=== PATIENT | male | born 1975 | race Caucasian/White ===

== ENCOUNTER 2016-07-14 13:12 | Inpatient (IN) | payer BC, OTHER ==
[~2016-07-14] VITALS: Ht 167.6 cm; Wt 79.8 kg
[2016-07-14 07:10] VITALS: BP 134/86
[2016-07-14] MEDS ORDERED: ONDANSETRON ODT 4 MG TAB.RAPDIS SL PRN (14:00)
[2016-07-14] MEDS ORDERED: ONDANSETRON 4 MG/2 ML VIAL IM PRN (14:00)
[2016-07-14] MEDS ORDERED: MIRALAX 17 GM POWD.PACK PO PRN (14:00)
[2016-07-14] MEDS ORDERED: DICYCLOMINE HCL 20 MG TABLET PO PRN (14:00)
[2016-07-14] MEDS ORDERED: LOPERAMIDE HCL 2 MG CAPSULE PO PRN ×2 (14:00)
[2016-07-14] MEDS ORDERED: MAGNESIUM HYDROXIDE 30 ML LIQUID UDC PO PRN (14:00)
[2016-07-14] MEDS ORDERED: ACETAMINOPHEN 325 MG TABLET PO PRN (14:00)
[2016-07-14] MEDS ORDERED: LORAZEPAM 2 MG/1 ML VIAL IM PRN (14:00)
[2016-07-14] MEDS ORDERED: IBUPROFEN 400 MG TABLET PO PRN (14:00)
[2016-07-14] MEDS ORDERED: LORAZEPAM 1 MG TABLET PO PRN ×2 (14:00)
--- NOTE | 2016-07-14 14:10 | NUR ---
PRE-ASSESSMENT: Pre-Assessment done at intake office, client is A/O to name, place and time, he presents with flat affect, anxious mood, skin warm and moist, he states "I feel very tired, I just want to sleep." T 97.9, RR 18, HR 61, BP 134/86 (L arm, sitting), spO2 @ 98% on RA, Pain 0/10. He is fully ambulatory. He denies any allergies; he denies any withdrawal-induced seizure. PMH: Anxiety, alcohol use. Medications taken at home (He did not bring any home medications) Prescription for alprazolam 0.5 mg four months ago, he reports taking 1 or 2 tabs as prescribed 4-5 times per week. Substance use: Client reports consuming twelve 12-ounce servings of beer (6% ABV/serving) on a daily basis for the past five years, last consumed on 07/11/16 Client was discharged from [facility] in [place], [place] this morning; where he underwent medically supervised withdrawal for alcohol, s/sx of withdrawal treated with Oxazepam taper, with the last dose received this morning, he does not know the dose, he started taking it on 07/11/16. He denies been in a formal detox treatment. He reports his longest period of sobriety being for 3 months in 1995 (can not recall the months). Client made aware of Q4H vital signs check and he verbalized understanding.
--- NOTE | 2016-07-14 14:30 | NUR ---
Admissions Note 40 year old male admitted to [facility] for alcohol withdrawal. Client reports PMH of Anxiety, alcohol use. Client is oriented to unit, educated about protocols and how to work TV and call light in his room. Weight: 176 pounds. Height: 5'6" CIWA: 4 Client appears anxious, flushed face noted, skin intact, warm, moist, small tattoo on BUE and back. Bilateral lung clear on auscultation, abdomen soft, non-tender, no edema noted. Client is hyperverbal and doesn't remember exact dates at this time. Client has NKA. Regular diet ordered. Client denies any history of seizures. LBM was 07/04/16, moderate/brown/soft. Client denies a PCP. He gives verbal consent for PNA vaccine and HIV testing. Substance use: Client reports drinking his first beer at 10 y/o, but increased his drinking around 19 y/o, now he is consuming twelve 12-ounce servings of beer (6% ABV/serving) on a daily basis for the past five years, last consumed on 07/11/16 Client states that he lives with his sister, his and stepdaughter left him. Dr Matson assessed client, Lorazepam 1 mg PO q2h PRN CIWA 8-14, Lorazepam 2 mg PO q2h PRN CIWA 15+ and notify MD. Urine was collected upon admission. All safety measures instituted. Seizure precaution. Call light within reach. Will continue to monitor.
[2016-07-14 14:53] LABS: *AMPHETAMINE, URINE NEGATIVE (NEGATIVE); *BARBITURATE, URINE NEGATIVE (NEGATIVE); *CANNABINOID, URINE NEGATIVE (NEGATIVE); *COCCAINE, URINE NEGATIVE (NEGATIVE); *OPIATE, URINE NEGATIVE (NEGATIVE); *PHENCYCLIDINE SCREEN,URINE NEGATIVE (NEGATIVE)
[2016-07-14] MEDS ORDERED: THIAMINE HCL 200 MG/2 ML VIAL IM ONE (15:00)
[2016-07-14 15:24] LABS: BASOPHILS # (AUTO) 0.1 K/uL (0.0-8.0); BASOPHILS % (AUTO) 0.9 % (0.0-2.0); EOSINOPHILS % (AUTO) 0.7 % (0.0-7.0); HEMATOCRIT 42.3 % (40-50); HEMOGLOBIN 14.1 G/DL (14.0-18.0); LYMPHOCYTES # (AUTO) 1.5 K/UL (0.8-4.8); LYMPHOCYTES % (AUTO) 26.9 % (20.5-51.5); MEAN CORPUSCULAR HEMOGLOBIN 32.4 UUG (27.0-31.0); MEAN CORPUSCULAR HGB CONC 33 g/dL (32.0-37.0); MEAN CORPUSCULAR VOLUME 97.2 FL (82.0-92.0); MONOCYTES # (AUTO) 0.6 K/UL (0.1-1.30); NEUTROPHILS # (AUTO) 3.6 K/UL (1.8-8.9); NEUTROPHILS % (AUTO) 60.5 % (38.5-71.5); PLATELET COUNT (AUTO) 166 K/UL (150-450); RED BLOOD CELL COUNT(AUTO) 4.36 MIL/UL (4.7-6.1); WHITE BLOOD COUNT (AUTO) 5.8 K/UL (4.0-11.2)
[2016-07-14 15:29] LABS: ETHANOL < 3 MG/DL (0-0)
[2016-07-14 15:30] LABS: ALANINE AMINOTRANSFERASE 103 U/L (16-63); ALKALINE PHOSPHATASE 143 U/L (50-136); AMYLASE 167 U/L (25-115); ASPARTATE AMINOTRANSFERASE 129 U/L (15-37); BILIRUBIN,TOTAL 0.7 mg/dL (0.2-1.0); CARBON DIOXIDE 30 mmol/L (21-32); CHLORIDE 101 mmol/L (98-107); CREATININE 0.8 mg/dL (0.6-1.3); GLUCOSE 102 mg/dL (74-106); LIPASE 469 U/L (73-393); MAGNESIUM 2.1 mg/dL (1.8-2.4); POTASSIUM 4.4 mmol/L (3.5-5.1); TOTAL PROTEIN, SERUM 8.5 g/dL (6.4-8.2); UREA NITROGEN, BLOOD 8 mg/dL (7-18)
[2016-07-14 15:54] LABS: THYROID STIMULATING HORMONE 1.908 mIU/mL (0.358-3.740)
[2016-07-14 16:50] VITALS: BP 148/82
--- NOTE | 2016-07-14 19:00 | NUR ---
Start of Shift Patient Received. Patient is in his room, awake, alert and verbally responsive. Patient noted to be watching TV. Patient is a 40 year old male, admitted 07/14/16 for ETOH Dependence under the care of Dr. Matson. Patient was placed on PRN medications for increased signs and symptoms of withdrawal. Patient verbalized No known allergies, full code, following a regular diet, placed on fall and seizure precautions, and skin intact. Past medical history verbalized of anxiety. Per endorsement, patient is to be NPO at Midnight with orders for Ultrasound to be rendered in the morning due to abnormal lab values. Patient is aware and verbalizes understanding. No PRN medications administered. All needs attended to promptly. Will continue plan of care as ordered.
--- NOTE | 2016-07-14 19:08 | NUR ---
END OF SHIFT Client is in room, he appears anxious, withdrawn, he denies any N/V/D or headache. Available Lorazepam 1 mg PO q2h PRN CIWA 8-14, Lorazepam 2 mg PO q2h PRN CIWA 15+ and notify . ABD schedule for tomorrow d/t increased liver enzyme, R/O cbd Dilation. He is a 40 y/o male admitted to [facility] on 07/14/16 for medically-supervised withdrawal from alcohol. NKA, Regular diet, full code. Last CIWA 6 @ 1600. Adequate intake 1200mL and output void x 4, stool x 2. Seizure precautions. Side rails x 2 up/padded. Call light within reach. Endorsed to incoming nurse.
[2016-07-14 20:15] VITALS: BP 145/91
[2016-07-14 21:49] VITALS: BP 134/86
--- NOTE | 2016-07-14 21:55 | NUR ---
PRN Medication Administration Patient noted with a CIWA of 8 and verbalizing increased anxiety. Patient verbalized Keke tried to walk around in hopes to walk it off but my anxiety wont go away. PRN Ativan 1mg administered as per orders. Will continue to monitor.
--- NOTE | 2016-07-14 23:00 | NUR ---
PRN Medication Reassessment Patient noted in bed, awake, alert and verbally responsive. Patient was able to verbalize I was able to calm down once I took the medication. CIWA noted to be 4. Will continue to monitor.
[2016-07-15 00:49] VITALS: BP 136/82
[2016-07-15 04:10] VITALS: BP 139/77
[2016-07-15] MEDS: PANTOPRAZOLE SODIUM 40 MG TABLET.DR PO SCH (06:43)
--- NOTE | 2016-07-15 07:10 | NUR ---
End of Shift Patient is in bed sleeping but easily arousbale to verbal stimuli. Breathing even and non labored. No signs of pain or discomfort noted. Patient is a 40 year old male, admitted 07/14/16 for ETOH Dependence under the care of Dr. Matson. Patient was placed on PRN medications for increased signs and symptoms of withdrawal. Patient verbalized No known allergies, full code, following a regular diet, placed on fall and seizure precautions, and skin intact. Past medical history verbalized of anxiety. Patient was NPO after midnight due to orders for US of abdomen for elevated Liver enzymes. Patient was given PRN Ativan 1mg for CIWA of 8 which was noted to be effective. All needs attended to promptly. Will continue plan of care as ordered.
--- NOTE | 2016-07-15 07:30 | NUR ---
START OF SHIFT Rcvd endorsement from night nurse, client is in his room, A/O to name, place, time, he presents with anxious mood, flat affect, stating "I tried my best to fall asleep, but I couldn't." He reports anxiety and restless legs. Encouraged client to attend group therapy learn skills to maintain sobriety. PRN Ativan 1mg CIWA 8, after an hour CIWA 4 @ 2300. He denies any HERRERA, N/V/D. Client is a 40 year old male, admitted 07/14/16 for ETOH withdrawal, available Lorazepam 1 mg PO q2h PRN CIWA 8-14, Lorazepam 2 mg PO q2h PRN CIWA 15+ and notify . US ABD schedule for this am d/t increased liver enzyme, R/O cbd Dilation. NKA, full code, NPO since midnight d/t ultrasound. Seizure and fall precautions. Side rails x 2 up/padded. Call light within reach. Will continue plan of care as ordered.
[2016-07-15 08:00] VITALS: BP 124/85
[2016-07-15] MEDS: THIAMINE HCL 100 MG TABLET PO SCH (08:19)
[2016-07-15] MEDS: FOLIC ACID 1 MG TABLET PO SCH (08:19)
[2016-07-15] MEDS: MULTIVITAMINS,THERAPEUTIC TABLET PO SCH (08:19)
[2016-07-15] MEDS: CLONIDINE HCL 0.1 MG TABLET PO PRN (08:19)
--- NOTE | 2016-07-15 08:19 | NUR ---
PRN Clonidine 0.1mg Client appears very anxious, manifested by inability to stop moving feet, and wringing his hands, clonidine 0.1mg PO administered. Call light within reach.
[2016-07-15 08:24] LABS: BASOPHILS # (AUTO) 0.1 K/uL (0.0-8.0); BASOPHILS % (AUTO) 0.8 % (0.0-2.0); EOSINOPHILS # (AUTO) 0.1 K/uL (0.0-0.7); EOSINOPHILS % (AUTO) 1.1 % (0.0-7.0); HEMATOCRIT 41.1 % (40-50); HEMOGLOBIN 14.4 G/DL (14.0-18.0); LYMPHOCYTES # (AUTO) 1.9 K/UL (0.8-4.8); LYMPHOCYTES % (AUTO) 26.2 % (20.5-51.5); MEAN CORPUSCULAR HEMOGLOBIN 34.1 UUG (27.0-31.0); MEAN CORPUSCULAR HGB CONC 35 g/dL (32.0-37.0); MEAN CORPUSCULAR VOLUME 97.1 FL (82.0-92.0); MONOCYTES # (AUTO) 0.8 K/UL (0.1-1.30); MONOCYTES % (AUTO) 11.2 % (0.0-11.0); NEUTROPHILS # (AUTO) 4.4 K/UL (1.8-8.9); NEUTROPHILS % (AUTO) 60.7 % (38.5-71.5); PLATELET COUNT (AUTO) 166 K/UL (150-450); RED BLOOD CELL COUNT(AUTO) 4.23 MIL/UL (4.7-6.1); WHITE BLOOD COUNT (AUTO) 7.3 K/UL (4.0-11.2)
[2016-07-15 08:29] LABS: BILIRUBIN,DIRECT 0.3 mg/dL (0.0-0.2); BILIRUBIN,TOTAL 0.6 mg/dL (0.2-1.0); CREATININE 0.9 mg/dL (0.6-1.3); MAGNESIUM 2.2 mg/dL (1.8-2.4); PHOSPHOROUS 3.5 mg/dL (2.5-4.9); POTASSIUM 4.7 mmol/L (3.5-5.1); TOTAL PROTEIN, SERUM 8.2 g/dL (6.4-8.2)
[2016-07-15] MEDS ORDERED: TUBERCULIN,PURIF.PROT.DERIV. 5 TU/0.1 ML TEST ID ONE (09:00)
--- NOTE | 2016-07-15 09:19 | NUR ---
Reassessment PRN Clonidine 0.1mg Client appears less anxious, he is watching TV in his room. clonidine 0.1mg effective. Call light within reach.
--- NOTE | 2016-07-15 11:00 | NUR ---
Dr. Matson notified of abnormal lab values, NNO at [facility], client is asymptomatic. Will continue to monitor.
--- NOTE | 2016-07-15 12:25 | NUR ---
PNA VACCINE ADMINISTERED TO R DELTOID, TOLERATED WELL.
[2016-07-15 12:50] VITALS: BP 116/70
[2016-07-15] MEDS ORDERED: PNEUMOCOCCAL 23-VAL P-SAC VAC 0.5 ML VIAL IM ONE (13:00)
[2016-07-15] MEDS ORDERED: LORAZEPAM 1 MG TABLET PO PRN ×2 (13:15)
[2016-07-15 13:45] LABS: HEPATITIS B SURFACE AG Negative (Negative)
[2016-07-15 16:55] VITALS: BP 123/80
--- NOTE | 2016-07-15 19:00 | NUR ---
Start of Shift Patient Received. Patient is in the activities room participating in group activities. Patient is a 41 year old male, admitted 07/14/16 for ETOH Dependence under the care of Dr. Matson. Patient was placed on PRN medications for increased signs and symptoms of withdrawal. Patient verbalized No known allergies, full code, following a regular diet, placed on fall and seizure precautions, and skin intact. Past medical history verbalized of anxiety. Per endorsement, Patient received Abdominal US for elevated Lab values with results still pending. New orders for Labs to be rendered tomorrow morning 07/16/16. PRN Clonidine administered for increased signs and symptoms of withdrawal. PRN Medication noted to be effective. All needs attended to promptly. Will continue plan of care as ordered.
--- NOTE | 2016-07-15 19:17 | NUR ---
END OF SHIFT Client is in room, he appears anxious, pacing along the hallway, he states, "I am ok, I am not anxious." Available Lorazepam 1 mg PO q2h PRN CIWA 8-14, Lorazepam 2 mg PO q2h PRN CIWA 15+ and notify MD. THOMPSON ABD results pending. Dr. Matson ordered labs for 09/15/16 amylase, CBC, BMP, Mg, Phosphorus, Lipase, Liver function test, Total Bilirubin, client made aware and consent He is a 40 y/o male admitted to [facility] on 07/[facility]16 for medically-supervised withdrawal from alcohol. NKA, Regular diet, full code. Last CIWA 3 @ 1600. Adequate intake 1841mL and output void x 4, stool x 1. Seizure precautions. Side rails x 2 up/padded. Call light within reach. Endorsed to incoming nurse. .
[2016-07-15 20:24] VITALS: BP 141/91
[2016-07-15] MEDS ORDERED: LORAZEPAM 1 MG TABLET PO ONE (21:00)
[2016-07-16 00:18] VITALS: BP 130/79
--- NOTE | 2016-07-16 00:46 | NUR ---
PRN Medication Administration 0046 Patient is complaining of increased anxiety due to discharge tomorrow. PRN Clonidine administered. All non-pharmacological interventions noted to not be effective. Will continue to monitor for effectiveness of medication. Addendum: 07/17/16 at 0142 by OSCAR THOMPSON LVN entered in error
[2016-07-16 04:39] VITALS: BP 112/70
[2016-07-16] MEDS: PANTOPRAZOLE SODIUM 40 MG TABLET.DR PO SCH (06:44)
--- NOTE | 2016-07-16 07:05 | NUR ---
Start of Shift Endorsement received from nightshift nurse. Pt is a 40 y/o male admitted for alcohol dependence. Pt has been placed under observation under the care of Dr. Matson. Pt has not received any PRN medications. Pt is tolerating the taper well AEB CIWA 2 at 1999. Pt reports sleeping for 6 hours. Pt is expected to be discharged on 07/17/16. VS WNL. Full Code. PT is alert and oriented x4. Pt is in STABLE condition at this time. Remains compliant with medication and diet regimen. All needs have been met, All safety measures in place per hospital policy. Bed in lowest position, side rails up x2, call-light within reach. Will continue to monitor
--- NOTE | 2016-07-16 07:12 | NUR ---
End of Shift Patient is in bed, awake, alert and verbally responsive. Breathing even and non labored. No signs of pain or discomfort noted. Patient is a 41 year old male, admitted 07/14/16 for ETOH Dependence under the care of Dr. Matson. Patient was placed on PRN medications for increased signs and symptoms of withdrawal. Patient verbalized No known allergies, full code, following a regular diet, placed on fall and seizure precautions, and skin intact. Past medical history verbalized of anxiety. Abdominal US rendered for Elevated Liver enzymes and currently awaiting results. No PRN medications administered. Patient was noted to participate with group and social activities. Patient noted to sleep a total of 6 hours. All needs attended to promptly. Will continue plan of care as ordered.
[2016-07-16 07:50] LABS: BILIRUBIN,DIRECT 0.2 mg/dL (0.0-0.2); BILIRUBIN,TOTAL 0.5 mg/dL (0.2-1.0); CREATININE 0.9 mg/dL (0.6-1.3); MAGNESIUM 1.9 mg/dL (1.8-2.4); POTASSIUM 4.1 mmol/L (3.5-5.1); TOTAL PROTEIN, SERUM 7.9 g/dL (6.4-8.2)
[2016-07-16 07:54] LABS: BASOPHILS # (AUTO) 0.1 K/uL (0.0-8.0); BASOPHILS % (AUTO) 0.8 % (0.0-2.0); EOSINOPHILS # (AUTO) 0.1 K/uL (0.0-0.7); EOSINOPHILS % (AUTO) 1.2 % (0.0-7.0); HEMATOCRIT 41.2 % (40-50); LYMPHOCYTES # (AUTO) 2.5 K/UL (0.8-4.8); LYMPHOCYTES % (AUTO) 25.5 % (20.5-51.5); MEAN CORPUSCULAR HEMOGLOBIN 33.3 UUG (27.0-31.0); MEAN CORPUSCULAR HGB CONC 34 g/dL (32.0-37.0); MONOCYTES # (AUTO) 1.1 K/UL (0.1-1.30); MONOCYTES % (AUTO) 11.2 % (0.0-11.0); NEUTROPHILS % (AUTO) 61.3 % (38.5-71.5); PLATELET COUNT (AUTO) 183 K/UL (150-450); RED BLOOD CELL COUNT(AUTO) 4.21 MIL/UL (4.7-6.1); WHITE BLOOD COUNT (AUTO) 9.8 K/UL (4.0-11.2)
[2016-07-16 08:00] VITALS: BP 137/88
[2016-07-16] MEDS: MULTIVITAMINS,THERAPEUTIC TABLET PO SCH (08:29)
[2016-07-16] MEDS: FOLIC ACID 1 MG TABLET PO SCH (08:29)
[2016-07-16] MEDS: THIAMINE HCL 100 MG TABLET PO SCH (08:29)
--- NOTE | 2016-07-16 11:52 | NUR ---
ASSUMED CARE Pt's endorsement received from primary nurse. All pertinent information discussed. Will cont to monitor closely. Safety measurers in place.
--- NOTE | 2016-07-16 11:53 | NUR ---
Transfer of Care Endorsed pt to [facility].
[2016-07-16 12:00] VITALS: BP 146/87
[2016-07-16] MEDS ORDERED: PNEUMOCOCCAL 23-VAL P-SAC VAC 0.5 ML VIAL IM ONE (13:00)
[2016-07-16 16:00] VITALS: BP 149/91
[2016-07-16 17:01] LABS: *AMPHETAMINE, URINE NEGATIVE (NEGATIVE); *BARBITURATE, URINE NEGATIVE (NEGATIVE); *CANNABINOID, URINE NEGATIVE (NEGATIVE); *COCCAINE, URINE NEGATIVE (NEGATIVE); *OPIATE, URINE NEGATIVE (NEGATIVE); *PHENCYCLIDINE SCREEN,URINE NEGATIVE (NEGATIVE)
--- NOTE | 2016-07-16 19:00 | NUR ---
308- Start of Shift 1900 Patient Received. Patient is in the activities room participating in group meeting. Patient is a 40 year old male, admitted 07/14/16 for ETOH Dependence under the care of Dr. Matson. Patient was placed on PRN medications for increased signs and symptoms of withdrawal. Patient verbalized No known allergies, full code, following a regular diet, placed on fall and seizure precautions, and skin intact. Past medical history verbalized of anxiety. Per endorsement, Patient is set for discharge tomorrow morning 07/17/16 to [facility]. No PRN medications administered. All needs attended to promptly. Will continue plan of care as ordered.
--- NOTE | 2016-07-16 19:03 | NUR ---
END OF SHIFT NOTE Gave report to night nurse, 40 y/o male admitted for alcohol dependence. Pt has been placed under observation under the care of Dr. Matson. Pt has not received any PRN medications. Patient encouraged adequate PO fluid intake as tolerated. Encouraged to attend group therapies/sessions to learn new coping skills to prevent relapse denies any SI/HI. Pt scheduled for discharge in am. Last CIWA-0. All safety measures in place, Call light within reach. Pt endorsed to night nurse in stable condition.
[2016-07-16 20:30] VITALS: BP 141/81
[2016-07-17 00:44] VITALS: BP 156/86
[2016-07-17] MEDS: CLONIDINE HCL 0.1 MG TABLET PO PRN (00:46)
--- NOTE | 2016-07-17 00:46 | NUR ---
PRN Medication Administration Patient is complaining of increased anxiety due to discharge tomorrow. PRN Clonidine administered. All non-pharmacological interventions noted to not be effective. Will continue to monitor for effectiveness of medication.
[2016-07-17 04:46] VITALS: BP 122/71
[2016-07-17] MEDS: PANTOPRAZOLE SODIUM 40 MG TABLET.DR PO SCH (06:33)
--- NOTE | 2016-07-17 07:05 | NUR ---
Start of Shift Endorsement received from nightshift nurse. Pt is a 40 y/o male admitted for alcohol dependence. Pt has been placed under observation under the care of Dr. Matson. Pt has not received any PRN medications. Pt is tolerating the taper well AEB CIWA 0 at midnight. Pt is scheduled to be discharged today, 07/17/16. All documentation has been completed and discharge educated has been completed. Pt reports sleeping for 4 hours. VS WNL. Full Code. PT is alert and oriented x4. Pt is in STABLE condition at this time. Remains compliant with medication and diet regimen. All needs have been met, All safety measures in place per hospital policy. Bed in lowest position, side rails up x2, call-light within reach. Will continue to monitor
--- NOTE | 2016-07-17 07:21 | NUR ---
End of Shift Patient is in bed, awake, alert and verbally responsive. Breathing even and non labored. No signs of pain or discomfort noted. Patient is a 40 year old male, admitted 07/14/16 for ETOH Dependence under the care of Dr. Matson. Patient was placed on PRN medications for increased signs and symptoms of withdrawal. Patient verbalized No known allergies, full code, following a regular diet, placed on fall and seizure precautions, and skin intact. Past medical history verbalized of anxiety. Patient is set for discharge today 07/17/16 to [facility]. Patient was given PRN Clonidine for increased Anxiety, per patient with the help of the medication I was really able to relax and go to sleep. PRN Clonidine noted to be effective. Patient noted to sleep a total of 4 hours. All needs attended to promptly. Will endorse to continue plan of care as ordered.
--- NOTE | 2016-07-17 07:37 | NUR ---
Discharge note PT has been discharged from [facility]. PT is in Stable condition, VS WNL. Denies suicidal and homicidal ideations at this time. . All documentation has been completed, paperwork signed and dated. Pt left with all of his belongings, medications and prescriptions. Pt has been discharged from [facility] on 07/17/16 at 0937. has been Notified.
[2016-07-17 08:00] VITALS: BP 127/54
[2016-07-17] MEDS: MULTIVITAMINS,THERAPEUTIC TABLET PO SCH (08:35)
[2016-07-17] MEDS: FOLIC ACID 1 MG TABLET PO SCH (08:35)
[2016-07-17] MEDS: THIAMINE HCL 100 MG TABLET PO SCH (08:35)
== END 2016-07-17 09:37 | disposition other institution (70) | DRG 895 ==
LOC: SRC 13:12
PROVIDERS: ADMIT Internal Medicine; ATTEND Internal Medicine
PROC: HZ2ZZZZ Detoxification Services for Substance Abuse Treatment (ICD-10-PCS; principal; 2016-07-14)
PROC: HZ41ZZZ Group Counseling for Substance Abuse Treatment, Behavioral (ICD-10-PCS; 2016-07-15)
PROC: HZ31ZZZ Individual Counseling for Substance Abuse Treatment, Behavioral (ICD-10-PCS; 2016-07-15)
DX: F10.230 Alcohol dependence with withdrawal, uncomplicated (principal); F13.90 Sedative, hypnotic, or anxiolytic use, unspecified, uncomplicated; Y90.9 Presence of alcohol in blood, level not specified; F41.9 Anxiety disorder, unspecified; Z83.3 Family history of diabetes mellitus; Z82.49 Family history of ischemic heart disease and other diseases of the circulatory system; Z81.1 Family history of alcohol abuse and dependence; R74.8 Abnormal levels of other serum enzymes; R74.0 Nonspecific elevation of levels of transaminase and lactic acid dehydrogenase [LDH]
CPT/HCPCS: 36415; 70030-TC; 76700; 80307; 83690; 83735; 84100; 84443; 85025; 85610; 86580; 86592; 86705; 86803; 87340; 87806; 90732; G6040-TC; J3411